=== PATIENT | male | born 1970 | race African-American/Black ===

== ENCOUNTER 2017-03-31 01:42 | Emergency (ER) | payer BC ==
[~2017-03-31] VITALS: Ht 170.2 cm; Wt 97.5 kg
[~2017-03-31 01:42] MED LIST: HYDR-971 PO; NAPR550T PO
[2017-03-31 01:52] VITALS: BP 149/91
[2017-03-31] MEDS ORDERED: IBUP-1007 PO (02:14)
--- NOTE | 2017-03-31 02:14 | PHYS DOC ---
Past Medical History Past Medical History: Hypertension Past Surgical History: Other Additional Past Surgical Histo: HERNIA Alcohol Use: None Drug Use: None Adult General Chief Complaint Chief Complaint: TOE PROBLEM HPI HPI Patient is a 46 year old gentleman complaining of pain to his left little toe after catching it on a corner of a door. Patient's physical exam is significant for tenderness to palpation to his left pinky toe with a small abrasion. There is no deformity noted. There is mild soft tissue swelling. Patient's ER workup was significant for an x-ray of the left foot which revealed no acute fracture Assessment and plan: Toe sprain we will yesenia tape the toes together and we will discharge him on ibuprofen and a hard sole shoe.. Review of Systems Review of Systems Constitutional: Denies fever or chills [] Eyes: Denies change in visual acuity, redness, or eye pain [] Allergies Allergies Allergies Coded Allergies Type Severity Reaction Last Updated Verified shellfish derived Allergy Unknown 10/04/16 No Physical Exam Physical Exam Constitutional: Well developed, well nourished, no acute distress, non-toxic appearance. [] HENT: Normocephalic, atraumatic, bilateral external ears normal, oropharynx moist, no oral exudates, nose normal. [] Eyes: no discharge. [] Current Patient Data Vital Signs Vital Signs Date Time Temp Pulse Resp B/P (MAP) Pulse Ox O2 Delivery O2 Flow Rate FiO2 03/31/17 01:52 99.0 100 16 95 Room Air 99.0 EKG EKG [] Radiology/Procedures Radiology/Procedures [] Course & Med Decision Making Course & Med Decision Making Pertinent Labs and Imaging studies reviewed. (See chart for details) [] Dragon Disclaimer Dragon Disclaimer This electronic medical record was generated, in whole or in part, using a voice recognition dictation system. Departure Departure Impression: Primary Impression: Strain of toe of left foot Disposition: HOME, SELF-CARE Condition: IMPROVED Referrals: TODD LLANOS (PCP) Patient Instructions: Yesenia Taping of Toes Scripts Ibuprofen (IBUPROFEN) 600 Mg Tablet 600 MG PO PRN Q6HRS Y for PAIN, #20 TAB Prov: ALLEGRA MILLER MD 03/31/17 Problem Qualifiers Primary Impression: Strain of toe of left foot Encounter type: initial encounter Qualified Codes: S96.912A - Strain of unspecified muscle and tendon at ankle and foot level, left foot, initial encounter ALLEGRA MILLER MD Mar 31, 2017 02:14
[2017-03-31] MEDS ORDERED: IBUPROFEN 600 MG TABLET. PO ONE (02:30)
--- NOTE | 2017-03-31 07:29 | RAD ---
Left Little toe, 3 views, 03/31/2017: History: Toe pain, injury No fracture or dislocation is identified. IMPRESSION: No significant little toe abnormality is identified.
== END 2017-03-31 02:29 | disposition home or self-care (01) ==
LOC: ER 01:42
DX: S96.912A Strain of unspecified muscle and tendon at ankle and foot level, left foot, initial encounter (principal); I10 Essential (primary) hypertension; Z98.890 Other specified postprocedural states; Z91.013 Allergy to seafood; W22.09XA Striking against other stationary object, initial encounter; Y93.89 Activity, other specified; Y99.8 Other external cause status; Y92.89 Other specified places as the place of occurrence of the external cause
CPT/HCPCS: 73660; 99284

== ENCOUNTER 2017-05-15 09:28 | Emergency (ER) | payer BC ==
[~2017-05-15] VITALS: Ht 170.2 cm; Wt 96.2 kg
[~2017-05-15 09:28] MED LIST changes: +IBUP-1007 PO
[2017-05-15] MEDS ORDERED: IV NORMAL SALINE 1000ML BAG 1,000 ML IV SCH (10:02)
[2017-05-15] MEDS: fentaNYL PF VIAL 100 MCG/2 ML VIAL IV PRN ×2 (10:11→11:33)
[2017-05-15] MEDS ORDERED: ONDANSETRON PF 4 MG/2 ML VIAL. IV ONE (10:15)
--- NOTE | 2017-05-15 10:16 | PHYS DOC ---
Past Medical History Past Medical History: Hypertension Past Surgical History: Other Additional Past Surgical Histo: HERNIA; carpal tunnel Alcohol Use: None Drug Use: None Adult General Chief Complaint Chief Complaint: FLANK PAIN HPI HPI Patient is a 46 year old male who presents with complaint of right-sided flank pain. Patient states his symptoms started at approximately 0230 this morning. Patient states that he is having dull pain that radiates from his right flank towards his right lower abdomen . Patient denies associated nausea or vomiting with his symptoms. Denies dysuria. Patient states the pain worsens with movement and when the affected area is pressed. The patient has not taken any medications for his symptoms. Patient does admit to history of kidney stones but does not remember if his current symptoms are similar to what he had in the past. Denies fevers. Rates pain as 10 out of 10. Review of Systems Review of Systems Constitutional: Denies fever or chills [] Eyes: Denies change in visual acuity, redness, or eye pain [] HENT: Denies nasal congestion or sore throat [] Respiratory: Denies cough or shortness of breath [] Cardiovascular: Denies chest pain or edema [] GI: Denies abdominal pain, nausea, vomiting, bloody stools or diarrhea [] : Denies dysuria or hematuria [] Musculoskeletal: Right flank pain [] Integument: Denies rash or skin lesions [] Neurologic: Denies headache, focal weakness or sensory changes [] Current Medications Current Medications Current Medications Medications (Trade) Dose Ordered Sig/Ismael Start Time Stop Time Status Last Admin Dose Admin Fentanyl Citrate (Fentanyl 2ml Vial) 50 mcg PRN Q15MIN PRN 05/15/17 10:15 05/16/17 10:14 05/15/17 11:33 50 MCG Iohexol (Omnipaque 300 Mg/ml) 75 ml 1X ONCE 05/15/17 12:15 05/15/17 12:16 DC 05/15/17 12:46 75 ML Ketorolac Tromethamine (Toradol) 30 mg 1X ONCE 05/15/17 11:30 05/15/17 11:31 DC 05/15/17 11:34 30 MG Ondansetron HCl (Zofran) 4 mg 1X ONCE 05/15/17 10:15 05/15/17 10:16 DC 05/15/17 10:11 4 MG Sodium Chloride 1,000 ml @ 1,000 mls/hr Q1H 05/15/17 10:02 05/15/17 11:01 DC 05/15/17 10:11 1,000 MLS/HR Allergies Allergies Allergies Coded Allergies Type Severity Reaction Last Updated Verified shellfish derived Allergy Unknown 10/04/16 No Physical Exam Physical Exam Constitutional: Alert, afebrile, appears in moderate discomfort. [] HENT: Normocephalic, atraumatic, bilateral external ears normal, oropharynx moist, no oral exudates, nose normal. [] Eyes: PERRLA, EOMI, conjunctiva normal, no discharge. [] Neck: Normal range of motion, no tenderness, supple, no stridor. [] Cardiovascular:Heart rate regular rhythm, no murmur [] Lungs & Thorax: Bilateral breath sounds clear to auscultation [] Abdomen: Bowel sounds normal, soft, no tenderness, no masses, no pulsatile masses. [] Skin: Warm, dry, no erythema, no rash. [] Back: Right CVA tenderness to palpation, no midline tenderness, no flank ecchymosis. [] Extremities: No tenderness, no cyanosis, no clubbing, ROM intact, no edema. [] Neurologic: Alert and oriented X 3, normal motor function, normal sensory function, no focal deficits noted. [] Current Patient Data Vital Signs Vital Signs Date Time Temp Pulse Resp B/P (MAP) Pulse Ox O2 Delivery O2 Flow Rate FiO2 05/15/17 12:23 60 17 141/86 (104) 99 Room Air 05/15/17 09:30 98.3 98.3 Lab Values Laboratory Tests Test 05/15/17 09:30 05/15/17 09:50 Urine Collection Type Unknown Urine Color Milena Urine Clarity Cloudy Urine pH 5.5 Urine Specific [place]an 1.025 Urine Protein 30 mg/dL (NEG-TRACE) Urine Glucose (UA) Negative mg/dL (NEG) Urine Ketones (Stick) Negative mg/dL (NEG) Urine Blood Large (NEG) Urine Nitrite Negative (NEG) Urine Bilirubin Negative (NEG) Urine Urobilinogen Dipstick 0.2 mg/dL (0.2 mg/dL) Urine Leukocyte Esterase Trace (NEG) Urine RBC Tntc /HPF (0-2) Urine WBC 5-10 /HPF (0-4) Urine Squamous Epithelial Cells Occ /LPF Urine Bacteria Few /HPF (0-FEW) Urine Mucus Slight /LPF White Blood Count 7.1 x10^3/uL (4.0-11.0) Red Blood Count 4.93 x10^6/uL (4.30-5.70) Hemoglobin 13.3 g/dL (13.0-17.5) Hematocrit 39.9 % (39.0-53.0) Mean Corpuscular Volume 81 fL (79-100) Mean Corpuscular Hemoglobin 27 pg (25-35) Mean Corpuscular Hemoglobin Concent 33 g/dL (31-37) Red Cell Distribution Width 13.9 % (11.5-14.5) Platelet Count 275 x10^3/uL (140-400) Neutrophils (%) (Auto) 62 % (31-73) Lymphocytes (%) (Auto) 26 % (24-48) Monocytes (%) (Auto) 9 % (0-9) Eosinophils (%) (Auto) 3 % (0-3) Basophils (%) (Auto) 0 % (0-3) Neutrophils # (Auto) 4.4 x10^3uL (1.8-7.7) Lymphocytes # (Auto) 1.8 x10^3/uL (1.0-4.8) Monocytes # (Auto) 0.7 x10^3/uL (0.0-1.1) Eosinophils # (Auto) 0.2 x10^3/uL (0.0-0.7) Basophils # (Auto) 0.0 x10^3/uL (0.0-0.2) Sodium Level 140 mmol/L (136-145) Potassium Level 3.5 mmol/L (3.5-5.1) Chloride Level 103 mmol/L (98-107) Carbon Dioxide Level 28 mmol/L (21-32) Anion Gap 9 (6-14) Blood Urea Nitrogen 14 mg/dL (8-26) Creatinine 1.3 mg/dL (0.7-1.3) Estimated GFR (Cockcroft-Gault) 71.6 BUN/Creatinine Ratio 11 (6-20) Glucose Level 168 mg/dL (70-99) H Calcium Level 9.3 mg/dL (8.5-10.1) Total Bilirubin 0.2 mg/dL (0.2-1.0) Aspartate Amino Transferase (AST) 21 U/L (15-37) Alanine Aminotransferase (ALT) 32 U/L (16-63) Alkaline Phosphatase 82 U/L (46-116) Creatine Kinase 190 U/L (39-308) Total Protein 7.5 g/dL (6.4-8.2) Albumin 3.7 g/dL (3.4-5.0) Albumin/Globulin Ratio 1.0 (1.0-1.7) Lipase 86 U/L (73-393) Laboratory Tests 05/15/17 09:50 Laboratory Tests 05/15/17 09:50 EKG EKG Not performed [] Radiology/Procedures Radiology/Procedures [facility] [address] [place] [address] IMAGING REPORT Signed PATIENT: ROBERTA VEGA ACCOUNT: [id number] : 1970 LOCATION: ER AGE: 46 SEX: M EXAM STATUS: REG ER ORD. PHYSICIAN: RAH CASTRO MD REASON: right flank pain, hematuria PROCEDURE: CT ABDOMEN PELVIS WO CONTRAST CT study of the abdomen and pelvis without contrast History: Right sided flank pain. Hematuria. Technique: Noncontrast helical CT scanning of the abdomen and pelvis was performed using the CT stone protocol. Without contrast, the sensitivity to detect organ pathology and GI tract pathology is decreased. PQRS Compliance Statement: One or more of the following individualized dose reduction techniques were utilized for this examination: 1. Automated exposure control 2. Adjustment of the mA and/or kV according to patient size 3. Use of iterative reconstruction technique Comparison: None available. Findings: Diffuse fatty infiltration of the liver is seen with focal fatty sparing around the gallbladder fossa. The spleen is not enlarged. The pancreas is homogeneous in appearance on this noncontrast study. The gallbladder is not distended. No extra hepatic biliary ductal dilatation is seen. No adrenal mass is evident. Mild right-sided hydronephrosis and hydroureter is seen. This is due to a distal right ureteral stone measuring 4 mm in size located at the ureterovesical junction. No renal mass is seen on this noncontrast study. Urinary bladder wall is smooth. No focal aneurysmal dilatation of the abdominal aorta is seen. No enlarged abdominal or pelvic lymphadenopathy is seen. No obstructive bowel pattern is seen. No free air or free fluid or mesenteric inflammatory change is seen. The appendix is normal. There is a noncalcified lung mass measuring 21 mm.. No osteolytic process is seen. IMPRESSION: Mild right-sided hydronephrosis and hydroureter due to a distal right ureteral stone measuring 4 mm in size located at the level of the ureterovesical junction. Noncalcified 21 mm right lower lobe lung mass. Recommend an outpatient dedicated chest CT with IV contrast for further evaluation. Diffuse fatty infiltration of the liver. DICTATED and SIGNED BY: GERI DIAZ MD DATE: 05/15/17 1129 CC: TODD LLANOS; RAH CASTRO MD ~ [facility] [address] [facility] [place], [place] [id number] IMAGING REPORT Signed PATIENT: ROBERTA VEGA ACCOUNT: [id number] : 1970 LOCATION: ER AGE: 46 SEX: M EXAM STATUS: REG ER ORD. PHYSICIAN: RAH CASTRO MD REASON: right lower lobe lung mass PROCEDURE: CT CHEST W/CONTRAST CT STUDY OF THE CHEST WITH CONTRAST Clinical indications: Right lower lobe lung mass seen on abdomen CT study performed today. Technique: After IV infusion of 75 cc of Omnipaque 300, helical CT scanning of the chest was performed. PQRS Compliance Statement: One or more of the following individualized dose reduction techniques were utilized for this examination: 1. Automated exposure control 2. Adjustment of the mA and/or kV according to patient size 3. Use of iterative reconstruction technique Comparison: No previous chest CT available. Findings: No enlarged thoracic lymphadenopathy is seen. No focal aneurysmal dilatation of the thoracic aorta is seen. There is ectasia of the ascending aorta measuring up to 4.3 cm in greatest caliber. No intimal flap or dissection is seen. The heart size is within normal limits. No pericardial effusion is seen. No lung mass or lung infiltrate is seen. The finding seen on the abdomen CT represented the nonenhanced inferior right pulmonary artery. No pleural effusion or pneumothorax is seen. The proximal bronchial tree is patent. No osteolytic process is seen. IMPRESSION: Previously seen possible right lower lobe lung mass represented the nonenhanced inferior right pulmonary artery on the noncontrast abdomen CT study. This is a normal finding. Otherwise no lung mass or lung infiltrate is seen. Ectasia of the ascending aorta measuring up to 4.3 cm in greatest caliber. Minimal calcified atheromatous disease of the coronary arteries. Heart size is normal. DICTATED and SIGNED BY: GERI DIAZ MD DATE: 05/15/17 1330 CC: TODD LLANOS; RAH CASTRO MD ~ [] Course & Med Decision Making Course & Med Decision Making Pertinent Labs and Imaging studies reviewed. (See chart for details) Patient was given IV fentanyl, Zofran, IV fluids, and Toradol for treatment of ureteral colic. The patient had a noted lung mass on his noncontrast CT and the recommendation was to have an IV contrast CT for further evaluation. This was completed as recommended which showed the aforementioned mass to be the lower branch of the pulmonary artery. Spoke with patient regarding these findings. The patient will be referred to [place] [facility] at [facility] for follow-up in one to 2 weeks if symptoms do not improve. The patient will be prescribed [place], Zofran, and Flomax for treatment of symptoms. Advised return emergency department for any worsening symptoms. Patient voiced understanding and in agreement with treatment plan. Dragon Disclaimer Dragon Disclaimer This electronic medical record was generated, in whole or in part, using a voice recognition dictation system. Departure Departure Impression: Primary Impression: Ureteral colic Additional Impression: Right ureteral stone Disposition: 01 HOME, SELF-CARE Condition: IMPROVED Referrals: TODD LLANOS (PCP) Patient Instructions: Kidney Stones Additional Instructions: Follow-up with [place] [facility] at [facility] in one to 2 weeks for reevaluation if symptoms do not improve. There are office number is . Return to the emergency department for any worsening symptoms. Scripts Tamsulosin Hcl (FLOMAX) 0.4 Mg Cap.er.24h 1 CAP PO DAILY, #30 CAP 0 Refills Prov: RAH CASTRO MD 05/15/17 Ondansetron (ZOFRAN ODT) 4 Mg Tab.rapdis 1 TAB SL Q8HRS Y for NAUSEA/VOMITING, #15 TAB Prov: RAH CASTRO MD 7/29/17 Hydrocodone/Apap 5-325 (NORCO 5-325 TABLET) 1 Each Tablet 1-2 TAB PO Q4-6HRS Y for PAIN, #20 TAB Prov: RAH CASTRO MD 05/15/17 Problem Qualifiers RAH CASTRO MD May 15, 2017 10:16
[2017-05-15 10:24] LABS: BILIRUBIN,URINE NEGATIVE (NEG); GLUCOSE,URINE NEGATIVE (NEG); NITRITE,URINE NEGATIVE (NEG); PH,URINE 5.5; PROTEIN,URINE 30 mg/dL (NEG-TRACE); UROBILINOGEN,URINE 0.2 mg/dL (0.2 mg/dL)
[2017-05-15 10:26] LABS: BASO % 0 % (0-3); EOS % 3 % (0-3); HEMATOCRIT 39.9 % (39.0-53.0); HEMOGLOBIN 13.3 g/dL (13.0-17.5); LYMPH # 1.8 x10^3/uL (1.0-4.8); LYMPH % 26 % (24-48); MEAN CORPUSCULAR HEMOGLOBIN 27 pg (25-35); MEAN CORPUSCULAR HGB CONC 33 g/dL (31-37); MEAN CORPUSCULAR VOLUME 81 fL (79-100); MONO % 9 % (0-9); NEUT % 62 % (31-73); PLATELET COUNT 275 x10^3/uL (140-400); RED BLOOD COUNT 4.93 x10^6/uL (4.30-5.70); RED CELL DISTRIBUTION WIDTH 13.9 % (11.5-14.5); WHITE BLOOD COUNT 7.1 x10^3/uL (4.0-11.0)
[2017-05-15 10:30] LABS: CALCIUM 9.3 mg/dL (8.5-10.1); CREATININE 1.3 mg/dL (0.7-1.3); GFR 71.6; POTASSIUM 3.5 mmol/L (3.5-5.1)
[2017-05-15 10:36] LABS: ALBUMIN 3.7 g/dL (3.4-5.0); TOTAL BILIRUBIN 0.2 mg/dL (0.2-1.0); TOTAL PROTEIN 7.5 g/dL (6.4-8.2)
[2017-05-15 10:49] LABS: BACTERIA,URINE FEW /HPF (0-FEW); RBC,URINE TNTC /HPF (0-2); SQUAMOUS EPITHELIAL CELL,UR OCC /LPF
[2017-05-15] MEDS ORDERED: KETOROLAC TROMETHAMINE 30 MG/ML INJ. IV ONE (11:30)
--- NOTE | 2017-05-15 11:41 | RAD ---
CT study of the abdomen and pelvis without contrast History: Right sided flank pain. Hematuria. Technique: Noncontrast helical CT scanning of the abdomen and pelvis was performed using the CT stone protocol. Without contrast, the sensitivity to detect organ pathology and GI tract pathology is decreased. PQRS Compliance Statement: One or more of the following individualized dose reduction techniques were utilized for this examination: 1. Automated exposure control 2. Adjustment of the mA and/or kV according to patient size 3. Use of iterative reconstruction technique Comparison: None available. Findings: Diffuse fatty infiltration of the liver is seen with focal fatty sparing around the gallbladder fossa. The spleen is not enlarged. The pancreas is homogeneous in appearance on this noncontrast study. The gallbladder is not distended. No extra hepatic biliary ductal dilatation is seen. No adrenal mass is evident. Mild right-sided hydronephrosis and hydroureter is seen. This is due to a distal right ureteral stone measuring 4 mm in size located at the ureterovesical junction. No renal mass is seen on this noncontrast study. Urinary bladder wall is smooth. No focal aneurysmal dilatation of the abdominal aorta is seen. No enlarged abdominal or pelvic lymphadenopathy is seen. No obstructive bowel pattern is seen. No free air or free fluid or mesenteric inflammatory change is seen. The appendix is normal. There is a noncalcified lung mass measuring 21 mm.. No osteolytic process is seen. IMPRESSION: Mild right-sided hydronephrosis and hydroureter due to a distal right ureteral stone measuring 4 mm in size located at the level of the ureterovesical junction. Noncalcified 21 mm right lower lobe lung mass. Recommend an outpatient dedicated chest CT with IV contrast for further evaluation. Diffuse fatty infiltration of the liver.
[2017-05-15] MEDS ORDERED: IOHEXOL 300 MG/ML 75 ML VIAL IV ONE (12:15)
[2017-05-15 12:23] VITALS: BP 141/86
--- NOTE | 2017-05-15 13:42 | RAD ---
CT STUDY OF THE CHEST WITH CONTRAST Clinical indications: Right lower lobe lung mass seen on abdomen CT study performed today. Technique: After IV infusion of 75 cc of Omnipaque 300, helical CT scanning of the chest was performed. PQRS Compliance Statement: One or more of the following individualized dose reduction techniques were utilized for this examination: 1. Automated exposure control 2. Adjustment of the mA and/or kV according to patient size 3. Use of iterative reconstruction technique Comparison: No previous chest CT available. Findings: No enlarged thoracic lymphadenopathy is seen. No focal aneurysmal dilatation of the thoracic aorta is seen. There is ectasia of the ascending aorta measuring up to 4.3 cm in greatest caliber. No intimal flap or dissection is seen. The heart size is within normal limits. No pericardial effusion is seen. No lung mass or lung infiltrate is seen. The finding seen on the abdomen CT represented the nonenhanced inferior right pulmonary artery. No pleural effusion or pneumothorax is seen. The proximal bronchial tree is patent. No osteolytic process is seen. IMPRESSION: Previously seen possible right lower lobe lung mass represented the nonenhanced inferior right pulmonary artery on the noncontrast abdomen CT study. This is a normal finding. Otherwise no lung mass or lung infiltrate is seen. Ectasia of the ascending aorta measuring up to 4.3 cm in greatest caliber. Minimal calcified atheromatous disease of the coronary arteries. Heart size is normal.
[2017-05-15] MEDS ORDERED: ONDA4TAB10 SL (14:09)
[2017-05-15] MEDS ORDERED: HYDR-971 PO (14:09)
[2017-05-15] MEDS ORDERED: TAMS0.4C97 PO (14:09)
== END 2017-05-15 14:37 | disposition home or self-care (01) ==
LOC: ER 09:28
DX: N20.1 Calculus of ureter (principal); I10 Essential (primary) hypertension
CPT/HCPCS: 36415; 71260; 74176; 80053; 81001; 82550; 83690; 85027; 87086; 96361; 96374; 96375; 96376; 99285; J1885; J2405; J3010; J7030; Q9967

== ENCOUNTER 2017-07-03 09:42 | Emergency (ER) | payer BC ==
[~2017-07-03] VITALS: Ht 170.2 cm; Wt 95.3 kg
[~2017-07-03 09:42] MED LIST changes: +NAPR-682 PO; -NAPR550T PO; +ONDA4TAB10 SL; +TAMS0.4C97 PO
--- NOTE | 2017-07-03 10:27 | EKG ---
[facility] [address] [place] [address] Test Date: 2017-07-03 Test Time: 09:48:45 Pat Name: ROBERTA VEGA Department: Room: Gender: M Stereotype Caster: : 1970 Requested By: ROXANNE PARRA Order Number: [id number] Reading MD: Juancarlos Sprague Measurements Intervals [place] Rate: 60 P: 24 [place]: 172 QRS: -2 QRSD: 78 T: 78 QT: 376 QTc: 376 Interpretive Statements SINUS RHYTHM NON-SPECIFIC ST/T CHANGES Electronically Signed On 07-05-2017 13:11:55 CDT by Juancarlos Sprague
--- NOTE | 2017-07-03 10:30 | RAD ---
Chest radiograph 07/03/2017 11:49 AM Indication: Chest pain Comparison: CT chest 05/15/2017 Technique: Single frontal view of the chest is provided. Findings: Cardiomediastinal silhouette is within normal limits. No pleural effusions, pulmonary vascular congestion or pneumothorax. The lungs are clear. Osseous structures are normal. Impression: No acute cardiopulmonary process.
[2017-07-03 10:42] LABS: BASO % 1 % (0-3); EOS % 3 % (0-3); HEMOGLOBIN 13.7 g/dL (13.0-17.5); LYMPH # 1.6 x10^3/uL (1.0-4.8); LYMPH % 25 % (24-48); MEAN CORPUSCULAR HEMOGLOBIN 27 pg (25-35); MEAN CORPUSCULAR HGB CONC 34 g/dL (31-37); MEAN CORPUSCULAR VOLUME 81 fL (79-100); MONO % 9 % (0-9); NEUT % 62 % (31-73); PLATELET COUNT 311 x10^3/uL (140-400); RED BLOOD COUNT 5.09 x10^6/uL (4.30-5.70); RED CELL DISTRIBUTION WIDTH 13.9 % (11.5-14.5); WHITE BLOOD COUNT 6.5 x10^3/uL (4.0-11.0)
[2017-07-03 10:56] LABS: CALCIUM 9.6 mg/dL (8.5-10.1); GFR 96.9
[2017-07-03 11:02] LABS: ALBUMIN 4.2 g/dL (3.4-5.0); ALBUMIN/GLOBULIN RATIO 1.1 (1.0-1.7); TOTAL BILIRUBIN 0.2 mg/dL (0.2-1.0)
[2017-07-03 11:30] VITALS: BP 134/95
--- NOTE | 2017-07-03 12:16 | PHYS DOC ---
Past Medical History Past Medical History: Hypertension, Other Additional Past Medical Histor: CHILDHOOD ASTHMA Past Surgical History: Other Additional Past Surgical Histo: HERNIA; carpal tunnel Alcohol Use: None Drug Use: None Adult General Chief Complaint Chief Complaint: CHEST PAIN HPI HPI Patient is a 46 year old -[place] male who presents with lower chest, epigastric pain which is been continuous for the past 2 days. Pain waxes and wane is worse with yawning, stretching and is partially relieved when laying still. Patient denies exertional component to his pain. Denies shortness breath , nausea and sweats. Denies leg pain or swelling. No fever chills or sweats. No other acute symptoms or complaints. No history of CAD, DVT or PE. Patient takes daily blood pressure indication which she states is well-controlled. Patient is a nonsmoker nonconsumer of alcohol. Patient reports increased ibuprofen use the past 2 weeks for low back pain. [] Review of Systems Review of Systems ROS as per HPI. All other ROS are negative. Allergies Allergies Allergies Coded Allergies Type Severity Reaction Last Updated Verified shellfish derived Allergy Unknown 10/04/16 No Physical Exam Physical Exam Constitutional: Well developed, well nourished, no acute distress, non-toxic appearance. [] HENT: Normocephalic, atraumatic, bilateral external ears normal, oropharynx moist, no oral exudates, nose normal. [] Eyes: PERRLA, EOMI, conjunctiva normal, no discharge. [] Neck: Normal range of motion, no tenderness, supple, no stridor. [] Cardiovascular:Heart rate regular rhythm, no murmur [] Lungs & Thorax: Bilateral breath sounds clear to auscultation [] Abdomen: Bowel sounds normal, soft, mild epigastric pain, tenderness, no masses , no pulsatile masses. [] Skin: Warm, dry, no erythema, no rash. [] Back: No tenderness, no CVA tenderness. [] Extremities: No tenderness, no cyanosis, no clubbing, ROM intact, no edema. [] Neurologic: Alert and oriented X 3, normal motor function, normal sensory function, no focal deficits noted. [] Psychologic: Affect normal, judgement normal, mood normal. [] Current Patient Data Vital Signs Vital Signs Date Time Temp Pulse Resp B/P (MAP) Pulse Ox O2 Delivery O2 Flow Rate FiO2 07/03/17 09:46 98.0 60 18 133/92 (106) 96 Room Air 98.0 Lab Values Laboratory Tests Test 07/03/17 10:21 White Blood Count 6.5 x10^3/uL (4.0-11.0) Red Blood Count 5.09 x10^6/uL (4.30-5.70) Hemoglobin 13.7 g/dL (13.0-17.5) Hematocrit 41.0 % (39.0-53.0) Mean Corpuscular Volume 81 fL (79-100) Mean Corpuscular Hemoglobin 27 pg (25-35) Mean Corpuscular Hemoglobin Concent 34 g/dL (31-37) Red Cell Distribution Width 13.9 % (11.5-14.5) Platelet Count 311 x10^3/uL (140-400) Neutrophils (%) (Auto) 62 % (31-73) Lymphocytes (%) (Auto) 25 % (24-48) Monocytes (%) (Auto) 9 % (0-9) Eosinophils (%) (Auto) 3 % (0-3) Basophils (%) (Auto) 1 % (0-3) Neutrophils # (Auto) 4.1 x10^3uL (1.8-7.7) Lymphocytes # (Auto) 1.6 x10^3/uL (1.0-4.8) Monocytes # (Auto) 0.6 x10^3/uL (0.0-1.1) Eosinophils # (Auto) 0.2 x10^3/uL (0.0-0.7) Basophils # (Auto) 0.0 x10^3/uL (0.0-0.2) Sodium Level 140 mmol/L (136-145) Potassium Level 4.0 mmol/L (3.5-5.1) Chloride Level 103 mmol/L (98-107) Carbon Dioxide Level 30 mmol/L (21-32) Anion Gap 7 (6-14) Blood Urea Nitrogen 10 mg/dL (8-26) Creatinine 1.0 mg/dL (0.7-1.3) Estimated GFR (Cockcroft-Gault) 96.9 BUN/Creatinine Ratio 10 (6-20) Glucose Level 99 mg/dL (70-99) Calcium Level 9.6 mg/dL (8.5-10.1) Total Bilirubin 0.2 mg/dL (0.2-1.0) Aspartate Amino Transferase (AST) 22 U/L (15-37) Alanine Aminotransferase (ALT) 39 U/L (16-63) Alkaline Phosphatase 93 U/L (46-116) Troponin I Quantitative < 0.017 ng/mL (0.000-0.055) Total Protein 8.0 g/dL (6.4-8.2) Albumin 4.2 g/dL (3.4-5.0) Albumin/Globulin Ratio 1.1 (1.0-1.7) Laboratory Tests 07/03/17 10:21 Laboratory Tests 07/03/17 10:21 EKG EKG [T: Normal sinus rhythm, rate 60, no acute ST-T wave changes, nonspecific T- wave changes. QTC 376.] Radiology/Procedures Radiology/Procedures [Chest x-ray: No acute cardiopulmonary disease per radiology report] Course & Med Decision Making Course & Med Decision Making Pertinent Labs and Imaging studies reviewed. (See chart for details) [Nonspecific chest pain continues for 2 days. Pain is nonexertional and reproduces with chest wall movement. Patient is not hypoxic. Stable vital signs. EKG and troponin are negative despite 2 days of continuous pain. Etiology unclear, speck may be related to gastritis to do recent increased ibuprofen use. Additional workup in the emergency department offered but declined. Patient requesting discharge. Will treat supportively with instructions to follow-up with PCP follow-up. Return cautions reviewed. Patient verbalizes understanding agreement discharge instructions prior to departure.] Dragon Disclaimer Dragon Disclaimer This electronic medical record was generated, in whole or in part, using a voice recognition dictation system. Departure Departure Impression: Primary Impression: Nonspecific chest pain Disposition: 01 HOME, SELF-CARE Condition: GOOD Patient Instructions: Chest Pain (Nonspecific), [id number]-[id number] Additional Instructions: You were evaluated in the emergency department for lower chest and upper abdominal pain. Lab work, EKG and imaging studies were performed and are normal. The cause of your chest pain has not been determined. Please take ibuprofen, start Pepcid OTC twice daily and Gaviscon for acure symptoms. Follow up with your PCP early next week for reevaluation. Return the ED if new or worsening symptoms. ROXANNE PARRA DO Jul 03, 2017 12:16
== END 2017-07-03 12:03 | disposition home or self-care (01) ==
LOC: ER 09:42
DX: R07.89 Other chest pain (principal); R10.13 Epigastric pain; I10 Essential (primary) hypertension; Z91.013 Allergy to seafood
CPT/HCPCS: 36415; 71010; 80053; 84484; 85025; 93005; 99285-25